=== PATIENT | female | born 1995 | race Caucasian/White ===

== ENCOUNTER 2018-09-30 22:19 | Emergency (ER) | payer OTHER ==
[~2018-09-30] VITALS: Ht 154.9 cm; Wt 50.5 kg
[2018-09-30 22:34] VITALS: Ht 154.9 cm; Wt 50.5 kg
[2018-09-30 23:38] LABS: microscopic required? NO
[2018-09-30 23:49] VITALS: BP 120/70
[2018-09-30 23:51] LABS: urine erythrocyte NEGATIVE (NEGATIVE)
== END 2018-09-30 23:49 | disposition home or self-care (01) ==
LOC: ED 22:19
PROVIDERS: Specialist
DX: N39.0 Urinary tract infection, site not specified (principal); N89.8 Other specified noninflammatory disorders of vagina
CPT/HCPCS: 87491; 87591